=== PATIENT | female | born 1970 | race Caucasian/White ===

== ENCOUNTER 2017-03-22 21:18 | Emergency (ER) | payer SELFPAY ==
[~2017-03-22] VITALS: Ht 154.9 cm; Wt 66.0 kg
[~2017-03-22 21:18] MED LIST: BENZ100 PO; PENVK500 PO; PRED20 PO
[2017-03-22 21:19] VITALS: BP 162/80; PULSE 89; RESP 16; TEMP 97.8; O2SAT 98
[2017-03-22] MEDS ORDERED: PRED-503 PO (22:27)
[2017-03-22] MEDS ORDERED: VIST50CA PO (22:27)
[2017-03-22] MEDS ORDERED: FAMO1TAB73 PO ×2 (22:27→23:13)
[2017-03-22] MEDS ORDERED: predniSONE 20 MG TAB PO ONE (22:30)
[2017-03-22] MEDS ORDERED: FAMOTIDINE 20 MG TAB PO ONE (22:30)
[2017-03-22] MEDS ORDERED: hydrOXYzine HCL 50 MG/ML VIAL IM ONE (22:30)
--- NOTE | 2017-03-22 22:33 | PD ---
HPI Chief Complaint: Skin Problem Time Seen by Provider: 22:29 Travel History International Travel<30 days: No Contact w/Intl Traveler<30days: No Traveled to known affect area: No History of Present Illness HPI 46-year-old white female presents to emergency department with a two-week history of pruritus. She states that she has stated of her friend's house and was unsure whether she had been bitten by bed bugs. She had noticed some red spots on her legs. She is also unsure whether that was from bug spray that she had applied earlier. She then went on and sprayed her couch at home and her loveseat with bedbug spray. She's had persistent diffuse pruritus with red dots along her legs and flank. She denies any fever or chills. No shortness of breath or wheezing. She's been using Benadryl without relief. She is also been using topical cortisone cream. She states that symptoms are severe. She is unsure whether this is a contact exposure or an allergic reaction to insect bites. She denies any recent illness. No shortness of breath or wheezing. PFSH Past Medical History Medical History: Denies Significant Hx Diminished Hearing: No Immunizations Current: No Tetanus Vaccination: < 5 Years ?: Not Past Surgical History Section: Yes Hysterectomy: Yes (PARTIAL) Social History Alcohol Use: Yes (6 BEERS PER WEEK) Tobacco Use: Yes (1 PPD) Substance Use: No Allergies-Medications (Allergen,Severity, Reaction): Coded Allergies: No Known Allergies (Verified , 03/22/17) Reported Meds & Prescriptions Reported Meds & Active Scripts Active Pepcid (Famotidine) 40 Mg Tab 40 Mg PO BID Vistaril (Hydroxyzine Pamoate) 50 Mg Cap 50 Mg PO QID PRN Deltasone (Prednisone) 20 Mg Tab 20 Mg PO TID Review of Systems Except as stated in HPI: all other systems reviewed are Neg Physical Exam Narrative GENERAL: Well-developed, well-nourished in no acute distress. Nontoxic appearing. HEAD: Normocephalic, atraumatic. EYES: Pupils equal round and reactive. Extraocular motions intact. No scleral icterus. No injection or drainage. ENT: TMs clear without erythema. The external auditory canals clear. Nose: clear . Posterior pharynx is pink and moist. No tonsillar edema or exudate. Uvula midline. Airway patent. NECK: Trachea midline.Supple, nontender, moves head freely. No central bony tenderness or spasm. CARDIOVASCULAR: Regular rate and rhythm without murmurs, gallops, or rubs. RESPIRATORY: Clear to auscultation. Breath sounds equal bilaterally. No wheezes , rales, or rhonchi. GASTROINTESTINAL: Abdomen soft, non-tender, nondistended. No hepato-splenomegaly , or palpable masses. No guarding. EXTREMITIES: No clubbing, cyanosis, or edema. No joint tenderness, effusion, or edema noted. BACK: Nontender without deformity or crepitance. No flank tenderness. Skin: The patient has a few red macules along the lateral aspects of her thighs bilaterally. A few scattered on her calfs. There are a few on her trunk. These do not look classically of bedbug bites but cannot exclude that. She does have some mild diffuse erythema and she is scratching all over. No hives. Data Data Last Documented VS Vital Signs Date Time Temp Pulse Resp B/P Pulse Ox O2 Delivery O2 Flow Rate FiO2 03/22/17 21:19 97.8 89 16 162/80 98 Room Air Orders Prednisone (Deltasone) (03/22/17 22:30) Hydroxyzine Hcl Inj (Vistaril Inj) (03/22/17 22:30) Famotidine (Pepcid) (03/22/17 22:30) MDM Medical Decision Making Medical Screen Exam Complete: Yes Emergency Medical Condition: Yes Medical Record Reviewed: Yes Differential Diagnosis MDM: High Differential diagnoses: Insect bites, contact dermatitis, allergic reaction Narrative Course Patient's given Pepcid 40 mg by mouth, prednisone 60 mg by mouth and 50 g of Vistaril IM. This is allergic reaction Diagnosis Primary Impression: Allergic reaction Qualified Code: T78.40XA - Allergic reaction, initial encounter Patient Instructions: General Instructions Additional Instructions: Rest. Perform a diary of all exposures over last 2 weeks when her rash started. Vistaril, prednisone, Pepcid. Aveeno bath. Dove soap. Recheck with a primary care doctor within 1 week. Return to the ER for emergencies. Med/Other Pt SpecificInfo: Prescription(s) given Scripts Famotidine (Pepcid)40 Mg Tab40 Mg PO BID #10 TAB Prov:Clifford,Shravanti R. MD 03/22/17 Hydroxyzine Pamoate (Vistaril)50 Mg Cap50 Mg PO QID PRN (HIVES/ITCHING/ ANAPHYLAXIS) #30 CAP Prov:Margaret Horton MD 03/22/17 Prednisone (Deltasone)20 Mg Tab20 Mg PO TID #15 TAB Prov:Margaret Horton MD 03/22/17 Disposition: 01 DISCHARGE HOME Condition: Stable Wilber Richards March 22, 2017 22:33
== END 2017-03-22 23:47 | disposition home or self-care (01) ==
LOC: NEPK 21:18
DX: T78.40XA Allergy, unspecified, initial encounter (principal); F17.210 Nicotine dependence, cigarettes, uncomplicated
CPT/HCPCS: 96372; 99282; J3410; J7512

== ENCOUNTER 2018-04-08 21:01 | Emergency (ER) | payer SELFPAY ==
[~2018-04-08] VITALS: Ht 172.7 cm; Wt 66.0 kg
[~2018-04-08 21:01] MED LIST changes: -BENZ100 PO; +FAMO1TAB73 PO; -PENVK500 PO; +PRED-503 PO; -PRED20 PO; +VIST50CA PO
[2018-04-08 21:56] VITALS: BP 140/65; PULSE 92; RESP 20; TEMP 97.2; O2SAT 98
[2018-04-08] MEDS ORDERED: FLUORESCEIN SOD 1 MG STRIP LEFT EYE ONE (22:15)
[2018-04-08] MEDS ORDERED: PROPARACAINE HCL 0.5% OPHT SOLN 15 ML BTL EACH EYE ONE (22:15)
[2018-04-08] MEDS ORDERED: ERYTOIN10 LEFT EYE (22:35)
--- NOTE | 2018-04-08 22:35 | PD ---
HPI Chief Complaint: Eye Problems/Injury Time Seen by Provider: 22:05 Travel History International Travel<30 days: No Contact w/Intl Traveler<30days: No Traveled to known affect area: No History of Present Illness HPI Patient is a 47 year old female who comes in complaining of pain to her left eye. She says she was trying to separate her eyelashes from the mascara she put on, with a needle, and she scratched her eye. She says this happened around 5PM. She tried to go to her niece's graduation, but her eye was bothering her too much, so she came in. She complains of pain and blurry vision of her left eye. Severity is mild to moderate. PFSH Past Medical History Medical History: Denies Significant Hx Diminished Hearing: No Immunizations Current: No Tetanus Vaccination: Unknown Influenza Vaccination: No ?: Not Past Surgical History Section: Yes Hysterectomy: Yes (PARTIAL) Social History Alcohol Use: Yes (6 BEERS PER WEEK) Tobacco Use: Yes (1 PPD) Substance Use: No Allergies-Medications (Allergen,Severity, Reaction): Coded Allergies: No Known Allergies (Verified , 03/22/17) Reported Meds & Prescriptions Reported Meds & Active Scripts Active No Active Prescriptions or Reported Medications Review of Systems General / Constitutional: No: Fever, Chills Eyes: Positive: Blurred Vision, Pain HENT: No: Headaches Cardiovascular: No: Chest Pain or Discomfort Respiratory: No: Shortness of Breath Gastrointestinal: No: Nausea, Vomiting Musculoskeletal: No: Myalgias, Edema Skin: No Rash, No Change in Pigmentation Neurologic: No: Weakness, Dizziness Physical Exam Narrative GENERAL: Awake and alert, in no acute distress. SKIN: Focused skin assessment warm/dry. HEAD: Atraumatic. Normocephalic. EYES: Pupils equal and round and reactive. No scleral icterus. EOMI. ENT: Mucous membranes pink and moist. CARDIOVASCULAR: Regular rate and rhythm. No murmur appreciated. RESPIRATORY: No accessory muscle use. Clear to auscultation. Breath sounds equal bilaterally. MUSCULOSKELETAL: No obvious deformities. No clubbing. No cyanosis. No edema. NEUROLOGICAL: Awake and alert. No obvious cranial nerve deficits. Motor grossly within normal limits. Normal speech. Data Data Last Documented VS Vital Signs Date Time Temp Pulse Resp B/P (MAP) Pulse Ox O2 Delivery O2 Flow Rate FiO2 04/08/18 21:56 97.2 92 20 140/65 (90) 98 Orders Orders Proparacaine 0.5% Opth Soln (Alcaine 0.5 (04/08/18 22:15) Fluorescein Strip (Dwywi-G-Hmdguu A.T.) (04/08/18 22:15) MDM Medical Decision Making Medical Screen Exam Complete: Yes Emergency Medical Condition: Yes Medical Record Reviewed: Yes Differential Diagnosis Corneal abrasion versus laceration versus traumatic iritis Narrative Course Patient is a 47-year-old female who comes in complaining of eye pain after she poked herself with a needle. Exam shows pupils are equal and reactive. Wood's lamp exam with fluorescein staining shows a scratch to the cornea in the 6 o' clock position. After proparacaine drops, patient felt better and her vision cleared. She will be discharged with prescription for erythromycin ointment. Advised follow-up with ophthalmology. Advised return to the ED as needed for any worsening symptoms. Diagnosis Primary Impression: Corneal abrasion Qualified Codes: S05.02XA - Injury of conjunctiva and corneal abrasion without foreign body, left eye, initial encounter Referrals: Kelly Murphy MD call for appointment Patient Instructions: Corneal Abrasion (ED), General Instructions Additional Instructions: Follow-up with ophthalmology. Use the ointment as directed. Return to the ED as needed for any worsening symptoms. Scripts Erythromycin Opth Oint (Erythromycin Opth Oint) 5 Mg/Gm Oint 1 APPLIC LEFT EYE QID for Infection for 7 Days, #1 TUBE 0 Refills Prov: Abida Quinn MD 04/08/18 Disposition: 01 DISCHARGE HOME Condition: Stable Abida Quinn MD Apr 08, 2018 22:35
== END 2018-04-08 22:53 | disposition home or self-care (01) ==
LOC: NEPD 21:01
DX: S05.02XA Injury of conjunctiva and corneal abrasion without foreign body, left eye, initial encounter (principal); F17.200 Nicotine dependence, unspecified, uncomplicated; W22.8XXA Striking against or struck by other objects, initial encounter
CPT/HCPCS: 99283

== ENCOUNTER 2018-04-30 07:09 | Emergency (ER) | payer SELFPAY ==
[~2018-04-30] VITALS: Ht 152.4 cm; Wt 63.5 kg
[~2018-04-30 07:09] MED LIST changes: +ERYTOIN10 LEFT EYE; -FAMO1TAB73 PO; -PRED-503 PO; -VIST50CA PO
[2018-04-30 07:14] VITALS: BP 136/84; PULSE 94; RESP 20; TEMP 98.2; O2SAT 98
[2018-04-30] MEDS ORDERED: PROPARACAINE HCL 0.5% OPHT SOLN 15 ML BTL LEFT EYE ONE (07:30)
--- NOTE | 2018-04-30 07:33 | PD ---
HPI Chief Complaint: Eye Problems/Injury Time Seen by Provider: 07:20 Travel History International Travel<30 days: No Contact w/Intl Traveler<30days: No Traveled to known affect area: No History of Present Illness HPI 47-year-old female presents emergency department with sudden onset left eye pain, redness, and watering. Patient states she was here 3 weeks ago with similar complaints after scratching her eye with her badge from work. Pain is 10 out of 10. She does not recall any injury from this current issue. She woke up with it this morning. She had some crusting of the eye. She denies fever, chills, sore throat, or other constitutional symptoms. He has no known drug allergies. PFSH Past Medical History Diminished Hearing: No Immunizations Current: No Past Surgical History Section: Yes Hysterectomy: Yes (PARTIAL) Social History Alcohol Use: Yes (6 BEERS PER WEEK) Tobacco Use: Yes (1 PPD) Substance Use: No Allergies-Medications (Allergen,Severity, Reaction): Coded Allergies: No Known Allergies (Verified , 03/22/17) Reported Meds & Prescriptions Reported Meds & Active Scripts Active Erythromycin Opth Oint 5 Mg/Gm Oint 1 Applic LEFT EYE QID 7 Days Review of Systems Except as stated in HPI: all other systems reviewed are Neg General / Constitutional: No: Fever Eyes: Positive: Blurred Vision, Photophobia, Drainage, Redness, Foreign Body Sensation, Pain, Tearing, No: Diploplia, Blind Spots, Visual changes, Blindness HENT: No: Headaches Cardiovascular: No: Chest Pain or Discomfort Respiratory: No: Shortness of Breath Gastrointestinal: No: Abdominal Pain Genitourinary: No: Dysuria Musculoskeletal: No: Pain Skin: No Rash Neurologic: No: Weakness Psychiatric: No: Depression Endocrine: No: Polydipsia Hematologic/Lymphatic: No: Easy Bruising Physical Exam Narrative GENERAL: Patient is in obvious distress. SKIN: Warm and dry. Normal color. Normal turgor. No rash. HEAD: Atraumatic. Normocephalic. EYES: Pupils equal and round. No scleral icterus. Left eye has moderate injection, tearing, and purulent drainage. Fluorescein dye is applied, after proparacaine drops were instilled with good anesthetic effect. Wood's lamp exam shows obvious corneal abrasion to the lower central cornea just below the pupil. Ocular motions are normal. ENT: No nasal bleeding or discharge. Mucous membranes pink and moist. NECK: Trachea midline. No JVD. CARDIOVASCULAR: Regular rate and rhythm. RESPIRATORY: No accessory muscle use. Clear to auscultation. Breath sounds equal bilaterally. GASTROINTESTINAL: Abdomen soft, non-tender, nondistended. Hepatic and splenic margins not palpable. MUSCULOSKELETAL: Extremities without clubbing, cyanosis, or edema. No obvious deformities. NEUROLOGICAL: Awake and alert. No obvious cranial nerve deficits. Motor grossly within normal limits. Five out of 5 muscle strength in the arms and legs. Normal speech. PSYCHIATRIC: Appropriate mood and affect; insight and judgment normal. Data Data Last Documented VS Vital Signs Date Time Temp Pulse Resp B/P (MAP) Pulse Ox O2 Delivery O2 Flow Rate FiO2 04/30/18 07:14 98.2 94 20 136/84 (101) 98 Orders Orders Proparacaine 0.5% Opth Soln (Alcaine 0.5 (04/30/18 07:30) MDM Medical Decision Making Medical Screen Exam Complete: Yes Emergency Medical Condition: Yes Medical Record Reviewed: Yes Differential Diagnosis Left eye pain. Left corneal abrasion. Conjunctivitis. Narrative Course Patient will be treated with neomycin/polymyxin/dexamethasone ophthalmic ointment every 3 hours. Patient also given ibuprofen 600 mg up to 4 times daily as needed Work note for today and tomorrow was given. Patient is to follow-up with ophthalmology if symptoms persist. Diagnosis Primary Impression: Abrasion of left cornea with infection Qualified Codes: S05.02XA - Injury of conjunctiva and corneal abrasion without foreign body, left eye, initial encounter; H44.002 - Unspecified purulent endophthalmitis, left eye Referrals: Kelly Murphy MD Patient Instructions: Corneal Abrasion (DC), General Instructions Departure Forms: Work Release Enter return to work date: May 02, 2018 Additional Instructions: Patient will be treated with neomycin/polymyxin/dexamethasone ophthalmic ointment every 3 hours. Patient also given ibuprofen 600 mg up to 4 times daily as needed Work note for today and tomorrow was given. Patient is to follow-up with ophthalmology if symptoms persist. Med/Other Pt SpecificInfo: Prescription(s) given Scripts Ibuprofen (Ibuprofen) 600 Mg Tab 600 MG PO Q6H Y for Pain/Inflammation, #40 TAB 0 Refills Prov: Yeimy Marinelli DO 04/30/18 Niebmjltav-Dwhtgzfyd-Ikpfeezm-HC Opth Oint (Hcnjbzuq-Moypmklua-Dspyprbsuo-HC Opth Oint) 3.5 Gm Oint 1 APPLIC LEFT EYE Q3HR for Infection, #3.5 GM 0 Refills Prov: Yeimy Marinelli DO 04/30/18 Disposition: 01 DISCHARGE HOME Condition: Stable Daniel Okeefe Apr 30, 2018 07:33
[2018-04-30] MEDS ORDERED: BACIOIN25 LEFT EYE (07:44)
[2018-04-30] MEDS ORDERED: IBUP-232 PO (07:44)
== END 2018-04-30 08:07 | disposition home or self-care (01) ==
LOC: NEPD 07:09
DX: S05.02XA Injury of conjunctiva and corneal abrasion without foreign body, left eye, initial encounter (principal); H44.002 Unspecified purulent endophthalmitis, left eye; F17.200 Nicotine dependence, unspecified, uncomplicated; X58.XXXA Exposure to other specified factors, initial encounter
CPT/HCPCS: 99283